=== PATIENT | male | born 1990 | race African-American/Black ===

== ENCOUNTER 2020-10-03 18:43 | Emergency (ER) | payer MEDICAID ==
[~2020-10-03] VITALS: Ht 180.3 cm; Wt 101.0 kg
[2020-10-03] MEDS ORDERED: LORAZEPAM 2MG/ML CPJ IV STA (18:57)
[2020-10-03] MEDS ORDERED: SODIUM CHLORIDE 0.9% 1,000 ML IV ONE (19:00)
[2020-10-03 19:44] LABS: BASOPHILS % 0.9 % (0.0-2.0); EOSINOPHILS % 1.1 % (0.0-5.0); HEMATOCRIT. 41.6 % (42.0-52.0); HEMOGLOBIN. 14.2 g/dL (14.0-18.0); LYMPHOCYTES % 25.1 % (20.0-50.0); MEAN CORPUSCULAR HEMOGLOBIN 29.4 pg (28.0-32.0); MEAN CORPUSCULAR VOLUME 86.5 fL (80.0-94.0); MEAN PLATELET VOLUME 9.8 fl (7.4-10.4); MONOCYTES % 9.7 % (2.0-8.0); NEUTROPHILS % 63.2 % (40.0-76.0); PLATELET 204 x1000/uL (130-400); RED BLOOD CELL COUNT 4.81 mill/uL (4.7-6.1); RED CELL DISTRIBUTION WIDTH 13.1 % (11.6-14.6)
[2020-10-03 19:50] LABS: CHLORIDE 106 mEq/L (98-107)
[2020-10-03 19:54] LABS: ETHANOL BLOOD < 10 mg/dL
[2020-10-03 22:15] VITALS: BP 121/60
== END 2020-10-03 22:29 | disposition home or self-care (01) ==
LOC: ER 18:43
DX: T40.7X1A Poisoning by cannabis (derivatives), accidental (unintentional), initial encounter (principal); R07.89 Other chest pain; R00.2 Palpitations; F41.9 Anxiety disorder, unspecified; F12.129 Cannabis abuse with intoxication, unspecified; Y92.89 Other specified places as the place of occurrence of the external cause
CPT/HCPCS: 36415; 71045; 80053; 80307; 80320; 80329; 83880; 84443; 84484; 85025; 93005; 96361; 96374; 99285; J2060; J7030; G0480

== ENCOUNTER 2020-12-12 05:07 | Emergency (ER) | payer MEDICAID, OTHER ==
[~2020-12-12] VITALS: Ht 180.3 cm; Wt 104.0 kg
[2020-12-12 05:15] VITALS: BP 143/99
[2020-12-12] MEDS ORDERED: HYDR30CR80 TP (06:41)
[2020-12-12] MEDS ORDERED: CEPH250C2 MT (06:41)
== END 2020-12-12 06:51 | disposition home or self-care (01) ==
LOC: ER 05:07
DX: K60.2 Anal fissure, unspecified (principal); L02.31 Cutaneous abscess of buttock; F12.10 Cannabis abuse, uncomplicated; Z79.899 Other long term (current) drug therapy
CPT/HCPCS: 99281; 99283

== ENCOUNTER 2021-02-06 08:51 | Emergency (ER) | payer OTHER, MEDICAID ==
[~2021-02-06] VITALS: Ht 182.9 cm; Wt 90.0 kg
[~2021-02-06 08:51] MED LIST: CEPH250C2 MT; HYDR30CR80 TP
[2021-02-06] MEDS ORDERED: IBUPROFEN 600MG TABLET PO STA (09:03)
[2021-02-06] MEDS ORDERED: SODIUM CHLORIDE 0.9% 1,000 ML IV ONE (09:15)
[2021-02-06 09:33] LABS: BASOPHILS % 0.5 % (0.0-2.0); EOSINOPHILS % 0.6 % (0.0-5.0); HEMATOCRIT. 44.6 % (42.0-52.0); HEMOGLOBIN. 15.1 g/dL (14.0-18.0); LYMPHOCYTES % 22.8 % (20.0-50.0); MEAN CORPUSCULAR HEMOGLOBIN 29.5 pg (28.0-32.0); MEAN CORPUSCULAR VOLUME 87.2 fL (80.0-94.0); MEAN PLATELET VOLUME 9.8 fl (7.4-10.4); MONOCYTES % 10.6 % (2.0-8.0); NEUTROPHILS % 65.5 % (40.0-76.0); PLATELET 213 x1000/uL (130-400); RED BLOOD CELL COUNT 5.11 mill/uL (4.7-6.1); RED CELL DISTRIBUTION WIDTH 13.5 % (11.6-14.6)
[2021-02-06 09:39] LABS: CHLORIDE 106 mEq/L (98-107)
[2021-02-06 09:46] LABS: *AMPHETAMINES SCREEN URINE NEGATIVE (NEGATIVE); *BARBITURATES SCREEN URINE NEGATIVE (NEGATIVE); *BENZODIAZEPINES SCREEN URINE NEGATIVE (NEGATIVE); CANNABINOID URINE SCREEN PRESUMTIVE POSITIVE (NEGATIVE); METHADONE URINE SCREEN NEGATIVE (NEGATIVE); OPIATES URINE SCREEN NEGATIVE (NEGATIVE); PHENCYCLIDINE URINE SCREEN NEGATIVE (NEGATIVE)
[2021-02-06 09:47] LABS: *COCAINE SCREEN URINE NEGATIVE (NEGATIVE)
[2021-02-06] MEDS ORDERED: KETOROLAC 15MG/ML VIAL IV ONE (12:45)
[2021-02-06] MEDS ORDERED: NAPR-681 MT (13:35)
[2021-02-06 13:45] VITALS: BP 139/94
== END 2021-02-06 13:50 | disposition home or self-care (01) ==
LOC: ER 08:51
DX: R07.89 Other chest pain (principal); R94.31 Abnormal electrocardiogram [ECG] [EKG]; R03.0 Elevated blood-pressure reading, without diagnosis of hypertension; F17.210 Nicotine dependence, cigarettes, uncomplicated; Z71.6 Tobacco abuse counseling; R74.01 Elevation of levels of liver transaminase levels; F12.90 Cannabis use, unspecified, uncomplicated
CPT/HCPCS: 36415; 71045; 80053; 80305; 84484; 85025; 85379; 93005; 96374; 99285; 99406; J1885; J7030

== ENCOUNTER 2021-03-10 03:15 | Emergency (ER) | payer MEDICAID, OTHER ==
[~2021-03-10] VITALS: Ht 182.9 cm; Wt 105.0 kg
[~2021-03-10 03:15] MED LIST changes: +NAPR-681 MT
[2021-03-10 03:17] VITALS: BP 139/95
== END 2021-03-10 04:17 | disposition left against medical advice (07) ==
LOC: ER 03:15
DX: R07.89 Other chest pain (principal); Z53.21 Procedure and treatment not carried out due to patient leaving prior to being seen by health care provider
CPT/HCPCS: 93005

== ENCOUNTER 2021-03-20 15:38 | Emergency (ER) | payer MEDICAID ==
[~2021-03-20] VITALS: Ht 180.3 cm; Wt 109.0 kg
[2021-03-20] MEDS ORDERED: ONDANSETRON HCL 4MG/2ML INJ IV STA (15:47)
[2021-03-20] MEDS ORDERED: LORAZEPAM 2MG/ML CPJ IV ONE (16:00)
[2021-03-20] MEDS ORDERED: SODIUM CHLORIDE 0.9% 1,000 ML IV ONE (16:00)
[2021-03-20 16:14] LABS: BASOPHILS % 0.7 % (0.0-2.0); EOSINOPHILS % 0.7 % (0.0-5.0); HEMATOCRIT. 42.2 % (42.0-52.0); HEMOGLOBIN. 14.1 g/dL (14.0-18.0); LYMPHOCYTES % 30.4 % (20.0-50.0); MEAN CORPUSCULAR HEMOGLOBIN 29.6 pg (28.0-32.0); MEAN CORPUSCULAR VOLUME 88.8 fL (80.0-94.0); MEAN PLATELET VOLUME 9.5 fl (7.4-10.4); MONOCYTES % 8.7 % (2.0-8.0); NEUTROPHILS % 59.5 % (40.0-76.0); PLATELET 280 x1000/uL (130-400); RED BLOOD CELL COUNT 4.75 mill/uL (4.7-6.1); RED CELL DISTRIBUTION WIDTH 14.6 % (11.6-14.6)
[2021-03-20 16:22] LABS: CHLORIDE 108 mEq/L (98-107)
[2021-03-20 16:23] LABS: PROTHROMBIN TIME 10.9 sec (9.6-11.0)
[2021-03-20 16:26] LABS: ETHANOL BLOOD 23 mg/dL
[2021-03-20 16:56] LABS: *AMPHETAMINES SCREEN URINE NEGATIVE (NEGATIVE); *BARBITURATES SCREEN URINE NEGATIVE (NEGATIVE)
[2021-03-20 16:57] LABS: *BENZODIAZEPINES SCREEN URINE NEGATIVE (NEGATIVE); *COCAINE SCREEN URINE NEGATIVE (NEGATIVE); CANNABINOID URINE SCREEN PRESUMTIVE POSITIVE (NEGATIVE); METHADONE URINE SCREEN NEGATIVE (NEGATIVE); OPIATES URINE SCREEN NEGATIVE (NEGATIVE); PHENCYCLIDINE URINE SCREEN NEGATIVE (NEGATIVE)
[2021-03-20 17:46] VITALS: BP 149/99
== END 2021-03-20 18:20 | disposition home or self-care (01) ==
LOC: ER 15:38
DX: T40.711A Poisoning by cannabis, accidental (unintentional), initial encounter (principal); R07.89 Other chest pain; R00.2 Palpitations; R20.0 Anesthesia of skin; F12.929 Cannabis use, unspecified with intoxication, unspecified; M62.838 Other muscle spasm; F10.10 Alcohol abuse, uncomplicated; Y90.1 Blood alcohol level of 20-39 mg/100 ml; F45.8 Other somatoform disorders; E87.6 Hypokalemia; Y92.89 Other specified places as the place of occurrence of the external cause
CPT/HCPCS: 36415; 71045; 80053; 80305; 80320; 83880; 84484; 85025; 85610; 93005; 96361; 96374; 96375; 99285; J2060; J2405; J7030; G0480

== ENCOUNTER 2021-06-29 09:49 | Emergency (ER) | payer OTHER, MEDICAID ==
[~2021-06-29] VITALS: Ht 182.9 cm; Wt 105.0 kg
[2021-06-29] MEDS ORDERED: IBUP-2030 MT (12:17)
[2021-06-29 12:29] VITALS: BP 123/75
== END 2021-06-29 12:30 | disposition home or self-care (01) ==
LOC: ER 09:49
DX: S63.591A Other specified sprain of right wrist, initial encounter (principal); W01.0XXA Fall on same level from slipping, tripping and stumbling without subsequent striking against object, initial encounter; Y93.89 Activity, other specified; Y92.89 Other specified places as the place of occurrence of the external cause
CPT/HCPCS: 73110; 99283